=== PATIENT | male | born 1940 ===

== ENCOUNTER 2016-11-05 06:09 | Day surgery (SDC) | payer MEDICARE ==
[~2016-11-05 06:09] MED LIST: Buffered Lidocaine 1% SYRIN* 3 ML/SYR SYRINGE INTRADERM ONE; Famotidine IV* 10 MG/ML 2 ML (20 mg) IV ONE; Morphine INJ* 2 MG/ML 1 ML SYRINGE IV PRN; PROCHLORPERAZINE INJ 5 MG/ML 2 ML VIAL IV PRN; fentaNYL* 50 MCG/ML 2 ML VIAL (100 MCG VIAL) IV PRN; oxyCODONE/Acetamin 5/325 MG* TAB PO PRN
[2016-11-05] MEDS ORDERED: ceFAZolin 2 GM PREMIX(*) 2 GM/50 ML BAG IVPB ONE (06:22)
[2016-11-05] MEDS ORDERED: Famotidine IV* 10 MG/ML 2 ML (20 mg) ONE (06:22)
[2016-11-05] MEDS ORDERED: Lidocaine 1% INJ* 10 MG/ML 30 ML SDV ONE (07:07)
[2016-11-05] MEDS ORDERED: Bupivacaine 0.5% W/EPI SDV* 30 ML VIAL ONE (07:07)
[2016-11-05] MEDS ORDERED: Midazolam* 1 MG/ML 5 ML VIAL (5 MG) ONE (07:34)
[2016-11-05] MEDS ORDERED: fentaNYL* 50 MCG/ML 2 ML VIAL (100 MCG VIAL) ONE (07:34)
[2016-11-05] MEDS ORDERED: KETAMINE HCL* 50 MG/ML 10 ML VIAL ONE (07:34)
[2016-11-05] MEDS ORDERED: Lidocaine 2% PF* 5 ML VIAL ONE (08:56)
[2016-11-05] MEDS ORDERED: Dexamethasone IV* 4 MG/ML 1 ML (4 MG) ONE (08:56)
[2016-11-05] MEDS ORDERED: Phenylephrine INJ* 10 MG/ML 1 ML VIAL (10 MG) ONE (08:56)
[2016-11-05] MEDS ORDERED: Glycopyrrolate IV* 0.2 MG/ML 1 ML VIAL ONE (08:56)
[2016-11-05] MEDS ORDERED: Propofol* 10 MG/ML 20 ML BTL IV PUSH ONE (08:56)
[2016-11-05] MEDS ORDERED: Ketorolac INJ* 30 MG/ML 1 ML VIAL ONE (08:56)
[2016-11-05] MEDS ORDERED: Ondansetron INJ* 2 MG/ML VIAL ONE (08:56)
[2016-11-05] MEDS ORDERED: Flumazenil* 0.1 MG/ML 5 ML MDV ONE (10:00)
--- NOTE | 2016-11-05 10:11 | PN ---
Progress Note - Progress Note Note: Brief Op Note: Preop Dx: Bilateral Inguinal Hernia Postop Dx: same (both direct) Procedure: Open repair bilateral inguinal hernias w/ mesh Anesthesia: GET Surgeon: Grace Asst: ARDEN Espinal; MS Jose3 EBL: < 50ml Fluids: 1300 ml LR Drains: none Findings: dictated
[2016-11-05] MEDS ORDERED: oxyCODONE/Acetamin 5/325 MG* TAB ONE ×2 (10:32→10:34)
[2016-11-05 12:11] VITALS: BP 128/63
--- NOTE | 2016-11-06 16:39 | OP ---
OPERATIVE REPORT: DATE OF OPERATION: 11/05/16 - [facility] DATE OF : 44 SURGEON: Man Edwards MD INTERMEDIATE CARD TENDER: ARDEN Pike ANESTHESIOLOGIST: Dr. Esquivel. ANESTHESIA: General with local. PRE-OP DIAGNOSIS: Bilateral inguinal hernias. POST-OP DIAGNOSIS: Bilateral direct inguinal hernias. OPERATIVE PROCEDURE: Open repair with mesh with bilateral direct inguinal hernias. ESTIMATED BLOOD LOSS: Minimal. COMPLICATIONS: None. DRAINS: None. WOUND CLASSIFICATION: I. SPECIMENS: None. FINDINGS: The patient had bilateral inguinal hernias noted, right greater than left. No indirect inguinal hernia was noted on either side. ADDITIONAL NOTE: On the left side during the dissection, there was some significant scar tissue, the medial aspect of the inguinal floor, due to the patient's previous open prostatectomy. The spermatic cord and its contents had been deviated medially and there was some dense scar tissue and during this dissection, I inadvertently transected the vas deferens on the left. This portion of the vas was then removed and proximal and distal vas was ligated with 4-0 Vicryl tie. This occurrence was discussed with the patient's after the procedure and this was fully disclosed to her and her questions were answered. It was not felt that in a 76-year-old gentleman that this would warrant repair or the change in treatment. DESCRIPTION OF PROCEDURE: Written informed consent was obtained, both left and right groins were marked with indelible ink and preoperative antibiotics were administered. The patient was taken to the operating room and placed in the supine position. General anesthesia was administered. The sequential compression devices and warming blankets were applied. Bilateral lower abdomen and groins were prepped and draped in the usual sterile fashion. Time-out verification was completed. Initially, the right side was addressed first. 1% lidocaine with Marcaine was infiltrated in the right groin and an oblique incision was made several fingerbreadths above the inguinal crease. The Angel Luis's fascia was divided. The external oblique aponeurosis and external ring were identified. This fascia was opened in the direction of its fibers and the underlying spermatic cord was identified and encircled with a one quarter-inch [place] drain at the pubic tubercle. There was some scarring laterally from a previous appendectomy and this was taken down sharply. At this point, we were able to identify the inguinal floor. There was a rather moderate-sized direct space hernia that was from the cord structures. The epigastric vessels were identified. There was a cord lipoma that was extended up into the internal ring and this was from the cord structures and transected at the internal ring and reduced. No specimen was sent. There was no evidence of an indirect inguinal hernia. Next, I imbricated the direct space hernia with a running 3-0 Polysorb suture. The Covidien ProGrip onlay mesh was then placed and sutured to the pubic tubercle medially, the conjoint tendon superiorly, and the musculature laterally with interrupted 0 Polysorb suture. It was secured to the inguinal ligament inferiorly with a running 0 Polysorb suture. This reconstructed the floor nicely and covered the indirect space as well. Hemostasis was assured. The additional Marcaine was infiltrated. The external oblique aponeurosis was closed with a running 3-0 Polysorb suture. Angel Luis's fascia was closed with interrupted 3-0 Polysorb suture. The skin was approximated with subcuticular 4- 0 Polysorb suture. Steri-Strips and sterile dressings were applied. Next, attention was turned to the left groin. Once again, the anesthetic mix was infiltrated in the left groin and oblique incision was made several fingerbreadths above the inguinal crease. I carried down through the subcutaneous tissue and Angel Luis's fascia. Medially, however, there was some dense scar tissue what appeared to be from the previous prostatectomy. We were able to divide the external oblique aponeurosis and identify the conjoint tendon and here there was a dense adherence between the spermatic cord and the medial abdominal musculature. It appeared to be the spermatic cord and a possible hernia into the medial aspect of the groin at about the level of the tubercle. It was here that as we were dissecting what appeared to be the scar tissue that I inadvertently divided the patient's vas deferens. This was clearly identified and a section of the vas was excised and proximally and distally was ligated with a Vicryl tie to prevent bleeding. There was no other injury to the spermatic cord and in light of the patient's age, I did not pursue the idea of attempted repair for the management of this occurrence. After some of the tedious dissection, I was able to encircle the remainder of the spermatic cord with a one quarter-inch [place] drain. There indeed was another direct space hernia, which was adherent to the cord structures and we dissected this off laterally and then subsequently identified the epigastric vessels. Once again, there was a rather large cord lipoma, which we from the structures up into the internal ring and this was transected and no specimen was sent. The direct space hernia was much smaller than the right and easily reducible. No indirect inguinal hernia sac was identified. Next, the left-sided ProGrip Covidien mesh was placed and sutured to the pubic tubercle medially, the conjoint tendon superiorly, and the musculature laterally. It was secured to the inguinal ligament inferiorly with a running 0 Polysorb suture. Hemostasis was assured. Additional Marcaine was infiltrated. The external oblique aponeurosis was closed with running 0 Polysorb suture. Angel Luis's fascia was closed with interrupted 3-0 Polysorb suture. The skin was approximated with subcuticular 4-0 Polysorb suture. Steri-Strips and sterile dressings were applied. The patient tolerated the procedure well and was taken to the recovery room in stable condition. CC: [facility] [id number]/[facility] #: [id number] BLAYNE
== END 2016-11-05 12:11 | disposition home or self-care (01) ==
LOC: OR 06:09
PROVIDERS: ATTEND Surgery
DX: K40.20 Bilateral inguinal hernia, without obstruction or gangrene, not specified as recurrent (principal); N99.71 Accidental puncture and laceration of a genitourinary system organ or structure during a genitourinary system procedure; Z85.46 Personal history of malignant neoplasm of prostate
CPT/HCPCS: A9270-GY; C1781; J0690; J1100; J1885; J2001; J2250; J2405; J2704; J3010